=== PATIENT | male | born 2000 | race African-American/Black ===

== ENCOUNTER 2025-06-12 14:48 | Emergency (ER) | payer SELFPAY ==
[2025-06-12] MEDS ORDERED: HYDROcodone/Acetaminophen 5/325 mg Tablet ONE ×2 (15:45→16:30)
[2025-06-12] MEDS ORDERED: Ketorolac Tromethamine 30 MG (1 mL) VIAL ONE (15:45)
== END 2025-06-12 17:45 | disposition home or self-care (01) ==
LOC: CSHERS 14:48
DX: S62.316A Displaced fracture of base of fifth metacarpal bone, right hand, initial encounter for closed fracture (principal); W22.8XXA Striking against or struck by other objects, initial encounter
CPT/HCPCS: 29125; 99283; J1885; Q0162